=== PATIENT | male | born 1965 | race Caucasian/White ===

== ENCOUNTER 2022-08-21 13:04 | Emergency (ER) | payer OTHER, SELFPAY ==
[2022-08-21 13:16] VITALS: BP 152/125; PULSE 89; RESP 16; TEMP 36.6; O2SAT 99
--- NOTE | 2022-08-21 14:21 | ED.GENADULT ---
HPI - General Adult General Chief complaint: Abdominal Pain Stated complaint: Abdominal/ Back Pain Time Seen by Provider: 08/21/22 14:23 Source: patient, RN notes reviewed and old records reviewed Mode of arrival: ambulatory Limitations: no limitations History of Present Illness HPI narrative: 56 year old male presents to the [facility] with complaints of right lower quadrant pain radiating to the right flank. Symptoms since yesterday possibly Sunday. Has had nausea without vomiting. Patient states that he go cold his symptoms and thinks he might have appendicitis. Onset (ago): day(s) (1-2) Related Data Home Medications Medication Instructions Recorded Confirmed No Home Medications 08/21/22 08/21/22 Allergies Allergy/AdvReac Type Severity Reaction Status Date / Time No Known Allergies Allergy Unverified 08/21/22 13:08 Review of Systems Review of Systems: All systems reviewed & are unremarkable except as noted in HPI and below Constitutional: Constitutional: Reports no additional constitutional complaints Eyes: Eyes: Reports no additional eye complaints ENT: Reports system reviewed and no additional complaints, except as documented Cardiovascular: Cardiovascular: Reports no additional cardiovascular complaints, Denies chest pain and Denies dyspnea Respiratory: Respiratory: Reports no additional respiratory complaints, Denies chest congestion, Denies cough and Denies dyspnea Gastrointestinal: Gastrointestinal: Reports as per HPI, Reports abdominal pain (Right lower quadrant), Reports nausea and Denies vomiting Musculoskeletal: Musculoskeletal: Reports no additional musculoskeletal complaints Integumentary/Breasts: Skin/Breast: Reports system reviewed and no additional complaints, except as docu Neurologic: Reports system reviewed and no additional complaints, except as documented Psychiatric: Psychiatric: Reports no additional psychiatric complaints Allergic/Immunologic: Allergic/Immunologic: Reports no additional allergic/immunologic complaints PMFSH Comments At the time of my signature, I reviewed and agree with the nursing past medical, surgical, social, and family history. There is no relevant family history pertinent to the patient complaint. Exam Const: General: cooperative, healthy appearing, comfortable, no acute distress, well developed, alert and well nourished Nutritional Appearance: well nourished Orientation/consciousness: patient oriented x3 Limitations: no limitations HENMT: Head: normal to inspection Ears: hearing grossly normal bilaterally and external ears normal Face/Nose/Sinus: Normal external nose present, Normal nares present, Normal nasal mucous membranes and turbinates present and normal facial exam Face and sinus: normal facial exam Mouth: Yes Normal oral and palatal mucosa present, Yes lip normal and Yes moist mucous membranes Throat: posterior oropharynx normal and uvula midline Eyes: General: appearance normal, both eyes and all related structures Alignment and Position: alignment normal Periorbital: periorbital findings normal Conjunctivae: conjunctivae normal Pupils: Equal, round and reactive pupils present EOM: EOMs intact bilaterally Neck: Neck: normal visual inspection, full ROM, no lymphadenopathy and no meningeal signs Chest: Chest palpation & inspection: normal inspection of the chest Resp: Effort & Inspection: normal respiratory effort and able to speak in complete sentences Auscultation: clear to auscultation bilaterally, no crackles, no rales, no rhonchi and no wheezes Cardio: Rate: regular rate Rhythm: regular rhythm GI: Inspection: distended GI Palp: Yes Soft to palpation and Yes Tenderness to palpation present (GI) (Right lower quadrant) Auscultation: Hypoactive bowel sounds present Back/Spine/Pelvis: Back: CVA tenderness (Right lower) Cervical Spine: cervical ROM normal Thoracic/Lumbar Spine: No thoracic spinal tenderness Skin: General skin e
== END 2022-08-21 14:30 | disposition short-term general hospital (02) ==
PROVIDERS: Emergency Provider Nurse Practitioner; PCP Family Medicine
DX: R10.31 Right lower quadrant pain (principal); I10 Essential (primary) hypertension
CPT/HCPCS: 99212; G0463

== ENCOUNTER 2022-08-21 15:27 | Emergency (ER) | payer OTHER, SELFPAY ==
--- NOTE | ~2022-08-21 | CT_ITS ---
EXAMINATION: CT abdomen pelvis w con DATE: 08/21/2022 19:55 INDICATION: abd pain TECHNIQUE: Computed tomography (CT) of the abdomen and pelvis was performed with 100 mL Omnipaque-350 intravenous contrast. Automated exposure control and iterative reconstruction technique were employe d. The dose-length product was 636.57 mGy-cm. COMPARISON: None. FINDINGS: Lower thorax: Left lower lobe scar/atelectasis. Liver: Diffuse fatty infiltration. Biliary/Gallbladder: Gallbladder is normal. No bile duct dilation. Pancreas: No mass or duct dilation. Spleen: Normal. Adrenals:No mass. Kidneys: No mass, stone, or hydronephrosis. Mild inflammatory change at the mid right ureter likely r eactive to the inflammatory sigmoid process GI tract: Mild distal esophageal and gastric wall edema No small or large bowel dilation. Normal appe ndix. Short segment wall thickening and perisigmoid inflammatory change in the distal sigmoid in the midline pelvis, posterior to the urinary bladder. Background diverticulosis. Distended thickened urin pura bladder. Mild prostatomegaly. Mesentery/Peritoneum: No ascites, mass, or free air. Retroperitoneum: No mass. Pelvis: Pelvic organs are within normal limits. Soft Tissues: Soft tissues and body wall unremarkable. Bones: IMPRESSION: Esophagitis/gastritis. Hepatomegaly and steatosis. Acute uncomplicated sigmoid diverticulitis. Bladde r wall thickening likely secondary to outlet compromise noting that cystitis could appear similar. Reviewed, dictated and finalized at location K. 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 Hepatomegaly and steatosis. Acute uncomplicated sigmoid diverticulitis. Bladder wall thickening likely secondary to outlet compromise n oting that cystitis could appear similar.
[2022-08-21 15:36] VITALS: BP 139/91; PULSE 86; RESP 16; TEMP 36.2; O2SAT 97
[2022-08-21 16:49] LABS: Appearance Urine Clear (Clear); Bilirubin Urine Negative (Negative); Blood Urine 1+ (Negative); Color Urine Yellow (Yellow); Glucose Urine UA 3+ mg/dL (Negative); Ketones Urine Trace mg/dL (Negative); Leukocyte Esterase Ur Negative LEU/UL (Negative); Nitrate Urine Negative (Negative); Protein Urine Trace mg/dL (Negative); Urobilinogen Urine 0.2 mg/dL (<2.0)
[2022-08-21 16:50] LABS: Add Urine Microscopic? YES
[2022-08-21 16:58] LABS: RBC Urine 0-2 /hpf (0-2); Squamous Epithelial Cell Urine Rare /hpf (Few); WBC Urine 0-3 /hpf
[2022-08-21 17:01] LABS: Basophils Absolute Auto 0.1 K/mm3 (0.0-0.1); Basophils Percent Auto 0.5 % (0.2-1.2); Eosinophils Absolute Auto 0.1 K/mm3 (0-0.3); Eosinophils Percent Auto 0.5 % (0-4.4); Hematocrit 48.9 % (42.0-52.0); Hemoglobin 16.8 g/dL (14.0-18.0); Immature Granulocyte Absolute 0.04 K/mm3 (0.00-0.031); Immature Granulocyte Percent A 0.4 % (0-0.5); Lymphocytes Absolute Auto 1.74 K/mm3 (0.9-3.2); Lymphocytes Percent Auto 16.8 % (18.3-44.2); Mean Corpuscular HGB Conc 34.4 g/dl (32-36); Mean Corpuscular Hemoglobin 31.5 pg (26-34); Mean Corpuscular Volume 91.7 fl (80-100); Mean Platelet Volume 10.7 fl (7.4-10.4); Monocytes Absolute Auto 0.9 K/mm3 (0.1-0.6); Monocytes Percent Auto 9.1 % (2.6-8.5); Neutrophils Absolute Auto 7.6 K/mm3 (1.3-6.7); Neutrophils Percent Auto 72.7 % (45.5-73.1); Platelet Count Result 180 k/mm3 (150-375); Red Blood Count 5.33 M/mm3 (4.6-6.20); Red Cell Distribution Width 12.3 % (11.5-14.5); White Blood Count 10.4 K/mm3 (4.5-10.0)
[2022-08-21 17:02] LABS: Alanine Aminotransferase 31 U/L (6-50); Albumin Level 4.5 g/dL (3.5-5.1); Alkaline Phosphatase 141 U/L (38-126); Anion Gap 6 mmol/L (8-16); Aspartate Amino Transferase 19 U/L (17-59); Bilirubin,Total 1.4 mg/dL (0.2-1.3); Blood Urea Nitrogen 9 mg/dL (9-20); Calcium 8.8 mg/dL (8.4-10.2); Carbon Dioxide 32 mmol/L (22-30); Chloride 96 mmol/L (98-107); Estimated CRCL calculation 121 ml/min; Estimated Glomerular Filt Rate > 60; Glucose 284 mg/dL (65-110); Potassium 4.5 mmol/L (3.4-5.0); Sodium 134 mmol/L (137-145)
[2022-08-21 17:16] LABS: Lipase 96 U/L (23-300)
[2022-08-21 18:24] VITALS: BP 144/99; PULSE 95; RESP 18; O2SAT 98
--- NOTE | 2022-08-21 19:12 | ED.ABDPAIN ---
HPI - Abdominal Pain General Chief Complaint: Abdominal Pain Stated Complaint: right flank pain Time Seen by Provider: 08/21/22 19:03 Source: RN notes reviewed History of Present Illness HPI narrative: Patient presents emergency room from home for abdominal pain. Patient states symptoms began 2 days ago. Pain is located in right lower abdomen radiates around the right back:. Described as sharp and stabbing in nature. He states he has had some mild diarrhea with the symptoms he denies any fevers or chills chest pain shortness of breath nausea vomiting or any other symptoms. States he is not take anything for the pain Related Data Allergies Allergy/AdvReac Type Severity Reaction Status Date / Time No Known Allergies Allergy Verified 08/21/22 19:23 Review of Systems Review of Systems: Gen.: Denies fevers or chills ENT: Denies congestion Respiratory: Denies shortness of breath or cough CV: Denies chest pain or palpitations GI: See HPI denies burning, urgency, frequency or hematuria Musculoskeletal: Denies back pain or muscle pain Neuro: Denies numbness, tingling, weakness or focal weakness Skin: Denies rash Except as documented, all other systems reviewed and negative [facility] Past Medical History Medical History (Updated 08/21/22 @ 20:55 by Wale Darby DO) Patient denies significant medical history Exam Narrative: APPEARANCE: No acute distress, nontoxic, resting in bed HEENT: Normocephalic, atraumatic, OMM RESPIRATORY: No respiratory distress, clear to auscultation bilaterally with no rhonchi wheezing or rales CARDIOVASCULAR: RRR s murmur ABDOMINAL: Soft nondistended tender palpation in right lower quadrant and right upper quadrant no tenderness left upper quadrant left lower quadrant no rebound or guarding MUSCULOSKELETAl: Moves all extremities. No clubbing, cyanosis or edema. NEURO: Awake and alert. Following commands, speech normal, no focal deficits SKIN:: Warm, dry. Normal Color PSYCHIATRIC: Normal affect/mood Course Course Emergency Course: Patient states that they are feeling much better at this time. States abdominal pain has improved. Repeat abdominal exam shows the patient's abdomen to be soft nonsurgical and present. Discussed with patient diverticulitis he states he did recently have a colonoscopy. Discussed with patient results of workup and diagnosis. Discussed need for follow-up with primary care physician, reasons to return to the emergency department in proper use of medication. Patient understands and agrees to current treatment plan Vital Signs Vital signs: Vital Signs Temperature 97.2 F L 08/21/22 15:36 Pulse Rate 86 08/21/22 15:36 Respiratory Rate 16 08/21/22 15:36 Blood Pressure 139/91 H 08/21/22 15:36 Pulse Oximetry 97 08/21/22 15:36 Oxygen Delivery Room Air 08/21/22 15:36 Temperature 97.2 F L 08/21/22 15:36 Pulse Rate 95 08/21/22 18:24 Respiratory Rate 18 08/21/22 18:24 Blood Pressure 144/99 H 08/21/22 18:24 Pulse Oximetry 98 08/21/22 18:24 Oxygen Delivery Room Air 08/21/22 15:36 MDM - Abdominal Pain MDM Narrative Medical decision making narrative: Patient's abdomen is soft without significant pain or signs of surgical abdomen on serial exams. Lab and x-ray evaluations are reviewed and patient is felt to be a reasonable candidate for outpatient management. Patient was instructed as to limitations of x-ray and laboratory evaluation and encouraged to return to ED or primary physician for repeat exam in 12 hours if continued or worsening pain. Diverticulitis on CT scan we will start on Augmentin and follow-up as an outpatient Lab Data 08/21/22 16:33 08/21/22 16:33 Labs: Lab Results 08/21/22 08/21/22 08/21/22 Range/Units 16:33 16:33 16:33 WBC 10.4 H (4.5-10.0) K/mm3 RBC 5.33 (4.6-6.20) M/mm3 Hgb 16.8 (14.0-18.0) g/dL Hct 48.9 (42.0-52.0) % MCV 91.7 (80-100) fl MCH 31.5 (26
[2022-08-21] MEDS: SODIUM CHLORIDE 0.9% IV 1,000 ML 999 ML IV CONT (19:26)
[2022-08-21] MEDS: KETOROLAC 30 MG/ML VIAL (*BKC) IV PUSH (19:26)
[2022-08-21] MEDS: AMOXICILLIN/CLAVULANATE K 875-125 MG TAB 1 TABLET PO (21:09)
[2022-08-21 21:13] VITALS: BP 151/97; PULSE 64; RESP 18; O2SAT 98
== END 2022-08-21 21:18 | disposition home or self-care (01) ==
PROVIDERS: Emergency Medicine; Emergency Provider Emergency Medicine; PCP Family Medicine
DX: K57.32 Diverticulitis of large intestine without perforation or abscess without bleeding (principal)
CPT/HCPCS: 36415; 74177; 80053; 81001; 83690; 85025; 96361; 96374; 99284; A9270; J1885; J7030; Q9967

== ENCOUNTER → 2022-12-22 11:21 | Outpatient (CLI) | payer OTHER, SELFPAY ==
--- NOTE | ~2022-12-22 | US_ITS ---
EXAMINATION: US carotid duplex BI DATE: 12/22/2022 11:38 INDICATION: Left-sided disturbance of skin sensation with numbness and tingling TECHNIQUE: Grayscale, color Doppler, and pulsed Doppler images of the cervical carotid arteries were obtained. The degree of vessel stenosis is placed in one of the following categories: normal, <50%, 5 0-69%, >=70% but less than near-occlusion, near-occlusion, or total occlusion. Note that percent sten osis relative to normal distal artery lumen diameter is indirectly measured from velocity measurement s as described by Siddharth, et al. Radiology 2003; 229:340-346. COMPARISON: None. FINDINGS: RIGHT: The right common carotid artery (CCA) peak systolic velocity (PSV) is 64 cm/s. The right internal car otid artery (ICA) PSV is 59 cm/s. The right ICA end-diastolic velocity (EDV) is 18 cm/s. The right IC A/CCA PSV ratio is 1.5. Grayscale and color Doppler images yield an estimate of <50% diameter reducti on from plaque in the ICA. The external carotid artery (ECA) PSV is 106 cm/s. There is antegrade flow in the right vertebral artery. LEFT: The left CCA PSV is 70 cm/s. The left ICA PSV is 70 cm/s. The left ICA EDV is 30 cm/s. The left ICA/C CA PSV ratio is 1.3. Grayscale and color Doppler images yield an estimate of <50% diameter reduction from plaque in the ICA. The ECA PSV is 81 cm/s. There is antegrade flow in the left vertebral artery. IMPRESSION: 1. <50% stenosis in the right internal carotid artery. 2. <50% stenosis in the left internal carotid artery. Reviewed, dictated and finalized at location B.
== END ==
PROVIDERS: PCP Family Medicine; Visit Provider Physician Assistant
DX: I65.23 Occlusion and stenosis of bilateral carotid arteries (principal)
CPT/HCPCS: 93880

== ENCOUNTER 2024-12-21 19:06 | Emergency (ER) | payer OTHER, SELFPAY ==
--- NOTE | ~2024-12-21 | XR_ITS ---
EXAM: XR hand LT min 3V DATE: 12/21/2024 19:25 HISTORY: injury . COMPARISON: 01/15/2007. FINDINGS: Normal mineralization. No fracture or dislocation. No lytic or blastic lesion. Scattered d egenerative changes, moderate at the first CMC joint. No erosion or periosteal change. Stable punctat e radiopaque debris over the second proximal phalanx. IMPRESSION: No acute osseous finding in the left hand. Reviewed, dictated and finalized at location K.
--- NOTE | 2024-12-21 19:09 | ED.UPPEXIN ---
HPI - Extremity Injury (Upper) General Chief Complaint: Extremity Injury, Upper Stated Complaint: left hand injury Time Seen by Provider: 12/21/24 19:08 Source: patient Mode of arrival: ambulatory Limitations: no limitations History of Present Illness HPI narrative: Patient is a 59-year-old male who presents with left hand injury after falling off stool at 3:00 this afternoon. States he has fell on outstretched hand and now has sharp pain to the center of dorsal hand. Still able to move wrist and fingers normally. Denies any swelling or bruising. Has not taken anything for pain. Related Data Allergies Allergy/AdvReac Type Severity Reaction Status Date / Time No Known Allergies Allergy Verified 12/21/24 19:09 Review of Systems Review of Systems: All systems reviewed & are unremarkable except as noted in HPI and below Constitutional: Constitutional: Denies body ache(s), Denies chills, Denies fatigue, Denies fever(s), Denies headache(s), Denies malaise and Denies weakness Eyes: Eyes: Denies blurry vision, Denies irritation and Denies loss of vision ENT: Denies otalgia, Denies headache(s), Denies nasal discharge, Denies sinus pain and Denies sore throat Cardiovascular: Cardiovascular: Denies chest pain, Denies irregular heart rhythm and Denies dyspnea Respiratory: Respiratory: Denies dyspnea Gastrointestinal: Gastrointestinal: Denies abdominal pain, Denies melena, Denies hematochezia, Denies diarrhea, Denies nausea and Denies vomiting Musculoskeletal: Musculoskeletal: Denies back pain, Denies myalgias and Reports arthralgias Integumentary/Breasts: Skin/Breast: Denies pruritus and Denies rash Neurologic: Denies headache(s), Denies loss of vision and Denies weakness Psychiatric: Psychiatric: Reports no additional psychiatric complaints Endocrine: Endocrine: Denies fatigue PMFSH Past Medical History Medical History History of adenomatous and serrated colon polyps Type 2 diabetes mellitus with diabetic neuropathy, without long-term current use of insulin Pulmonary infarct DVT of lower extremity (deep venous thrombosis) LEFT LEG Pulmonary embolism Diverticulitis Benign essential hypertension Nicotine dependence, unspecified, uncomplicated Major depressive disorder, recurrent, moderate Surgical History Surgical History History of colonoscopy 2016 Family History Family History Mother Breast cancer Heart disease Hypertension Acute myocardial infarction Father Hypertension Heart disease Acute myocardial infarction Grandparent Heart disease Diabetes mellitus Acute myocardial infarction Social History Social History Smoking packs per day: 1 Smoking cigarettes per day: 20.0 Smoking status: Current every day smoker Tobacco type: cigarettes Second hand tobacco smoke exposure: No Alcohol intake: current Substance use: current Substance use type: marijuana Do You Feel Safe in your Home?: Yes Lack of Transportation: No Lack of Food: Never True Current Housing: I Have Housing Concerned About Future Housing: No Difficulty Paying Gas/Electric Bills: No Difficulty Paying for Meds: No Currently Unemployed: No Education: High School Diploma/GED Difficulty w/ Childcare or Family Care: No Living arrangements: with roommate(s) Occupation/Education: occupation Gender identity (if verbalized by the patient): Male Sexual Orientation (if Verbalized by the Patient): Straight or Heterosexual Spiritual care concerns: No Comments At time of signature, agree with nursing past medical, surgical, social and family history. There is no relevant family history pertinent to the presenting complaint. Exam Const: General: cooperative, healthy appearing, comfortable, no acute distress and well nourished Nutritional Appearance: well nourished Orientation/consciousness: patient oriented x3 Limitations: no limitations HENMT: Head: normal to inspection, normocephalic and atraumatic Ears: hearing grossly normal bilaterally and external ears normal Face/Nose/Sinus: Normal external nose present, normal facial exam and face symmetric Face and sinus: normal facial exam and face symmetric Mouth: Yes lip normal Eyes: General: appearance normal, both eyes and all related structures Alignment and Position: alignment normal and position normal Periorbital: periorbital findings normal Eyelids: eyelids normal Pupils: Equal, round and reactive pupils present EOM: EOMs intact bilaterally Neck: Neck: normal visual inspection, full ROM and supple Chest: Chest palpation & inspection: normal inspection of the chest Resp: Effort & Inspection: normal respiratory effort and able to speak in complete sentences Auscultation: clear to auscultation bilaterally Cardio: Rate: regular rate Rhythm: regular rhythm Heart sounds: S1 normal heart sound present and S2 normal heart sound present GI: Inspection: normal to inspection Skin: General skin exam: normal color and no rashes or lesions noted Neuro: General: patient oriented x3 and moves all extremities Cranial nerves: Yes Equal, round and reactive pupils present Speech: normal speech Gait exam (Neuro): Normal gait present Extrem: General: normal to inspection, full ROM and no edema Left upper extremity: elbow/forearm normal to inspection, normal ROM and distal pulses intact; no tenderness and no swelling, wrist normal to inspection, normal ROM, normal vascular exam and radial pulse present; no tenderness, no swelling and no unusual warmth and hand normal to inspection, normal capillary refill, neuromotor exam normal Details: wrist extension normal, thumb opposition normal, thumb IP flexion normal, thumb ADduction normal and fingers 2-5 ABduction normal, neurosensory exam normal Details: radial nerve sensory function normal, ulnar nerve sensory function normal, median nerve sensory function normal and digital nerve sensory function normal, tendon exam normal Location: of all digits Details: extensor tendon, flexor digitorum profundus and flexor digitorum superficialis, tenderness of the dorsal hand over the 3rd metacarpal, vascular exam radial pulse present and normal capillary refill, normal ROM of fingers and no swelling; no unusual warmth and no ecchymosis Psych: Appearance: grossly normal and well kempt Mental Status: mental status grossly normal Speech and movement: Normal speech and movement present Affect: normal affect Attitude: cooperative Thought process: Normal thought process present Course Course Emergency Course: Patient is aware of diagnosis, understands and agrees to treatment plan. Anticipatory guidance given. Patient agrees to follow-up as directed and is aware of reasons to seek care at the emergency department. Portions of this record may have been created with voice recognition software Level of Care: Express Care Visit Vital Signs Vital signs: Reviewed MDM - Extremity Injury (Upper) MDM Narrative Medical decision making narrative: An Delfino wrap applied hand Pt well hydrated appearing, in no respiratory distress, hemodynamically stable. Recommend supportive care. The patient is stable at time of discharge the clinical impression was discussed and the patient was given the opportunity to ask questions, which were addressed as completely as possible given the information available at present. Anticipatory guidance and return to care precautions were discussed and the importance of primary care follow-up was stressed and encouraged. The patient voiced understanding of the plan, indications to return, and the need for follow-up. Exam findings show no acute concerns or changes Patient is appropriate for outpatient treatment and follow-up. Differential Diagnosis Differential diagnosis: Likely sprain and strain of wrist, fracture of wrist, fracture of hand and other (Hand sprain, contusion) Medical Records Attestation: I reviewed the patient's medical records. Imaging Data Radiologist's impression: EXAM: XR hand LT min 3V DATE: 12/21/2024 19:25 HISTORY: injury . COMPARISON: 01/15/2007. FINDINGS: Normal mineralization. No fracture or dislocation. No lytic or blastic lesion. Scattered degenerative changes, moderate at the first CMC joint. No erosion or periosteal change. Stable punctate radiopaque debris over the second proximal phalanx. IMPRESSION: No acute osseous finding in the left hand Discharge Plan Discharge Clinical Impression: Hand sprain Qualifiers: Encounter type: initial encounter Laterality: left Qualified Code(s): S63.92XA - Sprain of unspecified part of left wrist and hand, initial encounter Patient Disposition: Home Condition: Stable Instructions: Hand Sprain (ED) Additional Instructions: Xray showed no fracture. Minimize activities that aggravate the condition The RICE protocol. Follow the RICE protocol as soon as possible after your injury:. Ice should be immediately applied to keep the swelling down. It can be used for 20 to 30 minutes, three or four times daily. Do not apply ice directly to your skin. Compression dressings, bandages or delfino-wraps will immobilize and support your injured hand. Elevate your hand above the level of your heart as often as possible during the first 48 hours. For pain, you may take: Tylenol 650-1000mg by mouth every 4-6 hours. Do not exceed 4000mg in 24 hours. Advil (Ibuprofen) 600 mg by mouth every 6 hours. Do not exceed 2400mg in 24 hours. 8 AM: Tylenol 11 AM: Ibuprofen 2 PM: Tylenol 5 PM: Ibuprofen 8 PM: Tylenol 11 PM: Ibuprofen 2 AM: Tylenol 5 AM: Ibuprofen Please schedule a follow-up visit with your personal physician for further evaluation and treatment within 1week OR If your symptoms persist, change or worsen significantly before you can contact your personal physician then please, without delay, go to the emergency department for further evaluation. Patient Language: Honduran Prescriptions: No Action metformin 500 mg tablet extended release 24 hr 500 mg PO DAILY 90 Days Qty: 90 1RF lisinopril-hydrochlorothiazide 20-12.5 mg tablet 1 tablet PO DAILY Qty: 90 1RF rosuvastatin 20 mg tablet 20 mg PO DAILY Qty: 90 1RF Follow-up/Referrals: Hollis Lyle MD [Primary Care Provider] - 3 Days Stand Alone Forms: Work/School Release IP Time of Disposition: 19:42
[2024-12-21 19:22] VITALS: BP 132/75; PULSE 75; RESP 16; TEMP 36.7; O2SAT 100
== END 2024-12-21 19:45 | disposition home or self-care (01) ==
PROVIDERS: Emergency Provider Nurse Practitioner Family; PCP Family Medicine
DX: S63.92XA Sprain of unspecified part of left wrist and hand, initial encounter (principal); W17.89XA Other fall from one level to another, initial encounter; E11.42 Type 2 diabetes mellitus with diabetic polyneuropathy; Z79.84 Long term (current) use of oral hypoglycemic drugs; I10 Essential (primary) hypertension; F12.90 Cannabis use, unspecified, uncomplicated; Z86.711 Personal history of pulmonary embolism; Z86.718 Personal history of other venous thrombosis and embolism; Z86.0101 Personal history of adenomatous and serrated colon polyps
CPT/HCPCS: 73130; 99213; G0463

== ENCOUNTER 2025-01-01 02:42 | Day surgery (SDC) | payer OTHER, SELFPAY ==
[2024-12-23 13:10] VITALS: BMI 27.6
--- OUTSIDE RECORDS SUMMARY | 2025-01-01 02:46 | XMS_ITS | Referral Summary ---
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 Gender Identity Not on file Sexual Orientation Not on file Last Filed Vital Signs Vital Sign Reading Time Taken Comments Blood Pressure 153/93 12/19/2022 6:59 AM CDT Pulse 58 12/19/2022 6:59 AM CDT Temperature 36.7 C (98 F) 12/18/2022 8:38 PM CDT Respiratory Rate 18 12/19/2022 6:59 AM CDT Oxygen Saturation 98% 12/19/2022 6:59 AM CDT Inhaled Oxygen Concentration - - Weight 94.3 kg (207 lb 14.3 oz) 12/18/2022 8:38 PM CDT Height 190.5 cm (6' 3 ) 12/18/2022 8:38 PM CDT Body Mass Index 25.98 12/18/2022 8:38 PM CDT Plan of Treatment Not on file Insurance [employer] OPEN ACCESS Care Teams Director Of Pulmonary Unit Relationship Specialty Start Date End Date Unknown, Notinfile PCP - General 12/18/22
--- OUTSIDE RECORDS SUMMARY | 2025-01-01 02:46 | XMS_ITS | Clinical Summary ---
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 11/21/2024 Active rosuvastatin (CRESTOR) 20 MG tablet Take 1 tablet (20 mg total) by mouth daily. 11/21/2024 Active metFORMIN ER, MOD, (GLUMETZA) 500 MG TABLET SR 24 HR 24 hr tablet Take 2 tablets (1,000 mg total) by mouth daily. Active vitamin C (ASCORBIC ACID) 1000 MG tablet Take 1 tablet (1,000 mg total) by mouth daily. Active zinc gluconate 50 MG Tab Take 1 tablet (50 mg total) by mouth daily. Active baclofen (LIORESAL) 10 MG tablet Take 1 tablet (10 mg total) by mouth 3 (three) times daily. 15 tablet 11/22/2024 Active lidocaine 4 % patch Place 1 patch onto the skin daily. Remove & Discard patch within 12 hours or as directed by 10 patch 11/22/2024 Active Active Problems Problem Noted Date Diagnosed Date Cellulitis of right upper extremity 06/06/2016 Encounters Date Type Department Care Team Description 11/22/2024 1:27 PM CDT - 11/22/2024 4:43 PM CDT Emergency [facility] [place] [address] Ariana Odell PA Back Pain (Right side back pain) Discharge Disposition: Home or Self Care (Routine Discharge) 11/22/2024 Travel from Last 3 Months Family History Medical History Relation Comments Breast Cancer Mother Relation Status Comments Mother Social History Tobacco Use Types Packs/Day Years Used Date Smoking Tobacco: Every Day Smokeless Tobacco: Never Alcohol Use Standard Drinks/Week Comments Yes 0 (1 standard drink = 0.6 oz pur e alcohol) Occasional use Sex and Gender Information Value Date Recorded Sex Assigned at Male 11/22/2024 2:07 PM CDT 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 Gender Identity Not on file Sexual Orientation Not on file Last Filed Vital Signs Vital Sign Reading Time Taken Comments Blood Pressure 101/77 11/22/2024 4:42 PM CDT Pulse 57 11/22/2024 4:42 PM CDT Temperature 36.4 C (97.5 F) 11/22/2024 1:18 PM CDT Respiratory Rate 20 11/22/2024 4:42 PM CDT Oxygen Saturation 98% 11/22/2024 4:42 PM CDT Inhaled Oxygen Concentration - - Weight 95.3 kg (210 lb) 11/22/2024 1:18 PM CDT Height 188 cm (6' 2 ) 11/22/2024 1:18 PM CDT Body Mass Index 26.96 11/22/2024 1:18 PM CDT Plan of Treatment Health Maintenance Due Date Last Done Comments Colorectal Cancer Screening Colonoscopy (10 Years) 1965 Annual Physical 1968 Hepatitis C 11/18/1983 Pneumococcal Vaccine: 50+ Ye ars (1 of 2 - PCV) 1984 Zoster Vaccines (1 of 2) 11/18/2015 DTaP, Tdap and Td Vaccines ( 2 - Td or Tdap) 10/17/2019 10/17/2009 COVID-19 Vaccine ( - 2023-2 5 season) 2024 Meningococcal B Vaccine Aged Out No l onger eligible based on patient's age to complete this topic Meningococcal Vaccine Aged Out No melody david eligible based on patient's age to complete this topic RSV Immunizations Under 20 Months Aged Out No longer eligible based on patient's age to complete this topic Procedures Procedure Name Priority Date/Time Associated Diagnosis Comments ECG 12-LEAD STAT 11/22/2024 3:[address] ABD+PEL W CON STAT 11/22/2024 2:54 PM CDT CTA CHEST PE PROTOCOL STAT 11/22/2024 2:54 PM CDT ECG 12-LEAD STAT 11/22/2024 1:48 PM CDT HC URINALYSIS AUTO W/O MICRO STAT 11/22/2024 1:41 PM CDT XR CHEST PA+LAT STAT 11/22/2024 1:37 PM CDT LIPASE STAT 11/22/2024 1:36 PM CDT TROPONIN, QUANT STAT 11/22/2024 1:36 PM CDT COMPREHENSIVE METABOLIC PANEL STAT 11/22/2024 1:36 PM CDT D-DIMER, QUANTITATIVE STAT 11/22/2024 1:36 PM CDT CBC W/DIFF AUTOMATED STAT 11/22/2024 1:36 PM CDT from Last 3 Months Results * ECG 12 lead (11/22/2024 3:38 PM CDT) Only the most recent of2 resultswithin the time period is included. 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 [address] Test Date: 2024-11-22 Pat Name: SHOLA OSMAN Department: 41 Room: [place] [address] Gender: Male Curriculum And Instruction Director: Estrellita : 1965 Requested By: ARIANA ODELL Order Number: [id number] Reading MD: Dayna Flood Measurements Intervals [place] Rate: 50 P: 50 CT: 162 QRS: 42 QRSD: 103 T: 68 QT: 449 QTc: 413 Interpretive Statements SINUS BRADYCARDIA WITH OCCASIONAL SUPRAVENTRICULAR PREMATURE COMPLEXES INTERPRETATION BASED ON A DEFAULT AGE OF 40 YEARS Compared to ECG 11/22/2024 13:48:47 Atrial flutter no longer present Intraventricular conduction delay no longer present us Ariana ESPINOSA ECG ORDERABLES Final Result [facility] RAD * CTA CHEST PE PROTOCOL (11/22/2024 2:54 PM CDT) Anatomical Region Laterality Modality Chest Computed Tomogra phy 11/22/2024 2:55 PM CDT Impressions 11/22/2024 3:18 PM CDT Impression: 1. There is a small predominantly eccentric filling defect in a posterior left lower lobe subsegmental pulmonary arteries as described. The finding is compatible with pulmonary embolism, possibly acute, although the eccentric location of the thrombus could be seen with a subacute and old PE. 2. Peribronchial thickening is noted of the lower lobe bronchi which could be seen with bronchitis. There are regions of mucus plugging in the lower lobes as well, right greater than left. 3. There are no acute findings noted in the abdomen and pelvis. The findings were discussed with the ordering clinician at the time of interpretation. Referred By: Interpreted By: Christopher Fiore MD, 11/22/2024 2:55 PM Narrative 11/22/2024 3:18 PM [address] [address] Examination: CTA CHEST PE PROTOCOL, CT ABD+PEL W CON Exam time: 11/22/2024 2:26 PM INDICATION: Right flank pain for one week.. History of pulmonary embolism. Comparison: CT abdomen and pelvis 09/09/2019 Technique: Thin section images were obtained of the chest with a CTA pulmonary embolism protocol and with IV contrast. 120 ml of Isovue 370. Coronal, sagittal and coronal 3D MIP reconstructions. Images were obtained through the abdomen and pelvis as well. A dose lowering technique was used for this procedure, which may include, but is not limited to, dose reduction technique, automated exposure control, the use of iterative reconstruction, and ALARA (As Low As Reasonably Achievable)/ Image gently techniques. Findings: CHEST: There is a small predominantly eccentric filling defect in a posterior left lower lobe subsegmental pulmonary artery, best seen on series 6 images 64 and 65 and series 4 image 75. There is mild dependent atelectasis. There is mild fibroatelectasis in the lower lobes. Peribronchial thickening is noted of the lower lobe bronchi which could be seen with bronchitis. There are regions of mucus plugging noted in the lower lobes as well, right greater than left. There is no lymphadenopathy. No pericardial effusion. Coronary artery calcifications are noted. No acute osseous abnormality. Abdomen/pelvis: The liver, gallbladder, spleen, pancreas, adrenal glands, and kidneys are unremarkable. There is no ureteral calculus. There is no calculus in the urinary bladder. There is diverticulosis of the sigmoid colon without evidence for diverticulitis. The appendix is normal. No bowel obstruction or free intraperitoneal air. There is atherosclerosis of the abdominal aorta without aneurysm. There is no lymphadenopathy. No acute osseous abnormality. Procedure Note Christopher Fiore MD - 11/22/[address] [address] Examination: CTA CHEST PE PROTOCOL, CT ABD+PEL W CON Exam time: 11/22/2024 2:26 PM INDICATION: Right flank pain for one week.. History of pulmonaryembolism. Comparison: CT abdomen and pelvis 09/09/2019 Technique: Thin section images were obtained of the chest with a CTApulmonary embolism protocol and with IV contrast. 120 ml of Isovue 370.Coronal, sagittal and coronal 3D MIP reconstructions. Images wereobtained through the abdomen and pelvis as well. A dose loweringtechnique was used for this procedure, which may include, but is notlimited to, dose reduction technique, automated exposure control, the useof iterative reconstruction, and ALARA (As Low As Reasonably Achievable)/Image gently techniques. Findings: CHEST: There is a small predominantly eccentric filling defect in aposterior left lower lobe subsegmental pulmonary artery, best seen onseries 6 images 64 and 65 and series 4 image 75. There is mild dependentatelectasis. There is mild fibroatelectasis in the lower lobes.Peribronchial thickening is noted of the lower lobe bronchi which could beseen with bronchitis. There are regions of mucus plugging noted in thelower lobes as well, right greater than left. There is nolymphadenopathy. No pericardial effusion. Coronary artery calcificationsare noted. No acute osseous abnormality. Abdomen/pelvis: The liver, gallbladder, spleen, pancreas, adrenal glands,and kidneys are unremarkable. There is no ureteral calculus. There is nocalculus in the urinary bladder. There is diverticulosis of the sigmoidcolon without evidence for diverticulitis. The appendix is normal. Nobowel obstruction or free intraperitoneal air. There is atherosclerosisof the abdominal aorta without aneurysm. There is no lymphadenopathy. Noacute osseous abnormality. Impression: 1. There is a small predominantly eccentric filling defect in a posteriorleft lower lobe subsegmental pulmonary arteries as described. The findingis compatible with pulmonary embolism, possibly acute, although theeccentric location of the thrombus could be seen with a subacute and oldPE. 2. Peribronchial thickening is noted of the lower lobe bronchi whichcould be seen with bronchitis. There are regions of mucus plugging in thelower lobes as well, right greater than left. 3. There are no acute findings noted in the abdomen and pelvis. The findings were discussed with the ordering clinician at the time ofinterpretation. Referred By: Interpreted By: Christopher Fiore MD, 11/22/2024 2:55 PM Ariana Leighann ESPINOSA CT Final Result * CT ABD+PEL W CON (11/22/2024 2:54 PM CDT) Anatomical Region Laterality Modality Abdomen Computed Tomogra phy 11/22/2024 2:59 PM CDT Impressions 11/22/2024 3:18 PM CDT Impression: 1. There is a small predominantly eccentric filling defect in a posterior left lower lobe subsegmental pulmonary arteries as described. The finding is compatible with pulmonary embolism, possibly acute, although the eccentric location of the thrombus could be seen with a subacute and old PE. 2. Peribronchial thickening is noted of the lower lobe bronchi which could be seen with bronchitis. There are regions of mucus plugging in the lower lobes as well, right greater than left. 3. There are no acute findings noted in the abdomen and pelvis. The findings were discussed with the ordering clinician at the time of interpretation. Referred By: Interpreted By: Christopher Fiore MD, 11/22/2024 2:55 PM Narrative 11/22/2024 3:18 PM CDT [facility] [address] [place], [place] [address] Examination: CTA CHEST PE PROTOCOL, CT ABD+PEL W CON Exam time: 11/22/2024 2:26 PM INDICATION: Right flank pain for one week.. History of pulmonary embolism. Comparison: CT abdomen and pelvis 09/09/2019 Technique: Thin section images were obtained of the chest with a CTA pulmonary embolism protocol and with IV contrast. 120 ml of Isovue 370. Coronal, sagittal and coronal 3D MIP reconstructions. Images were obtained through the abdomen and pelvis as well. A dose lowering technique was used for this procedure, which may include, but is not limited to, dose reduction technique, automated exposure control, the use of iterative reconstruction, and ALARA (As Low As Reasonably Achievable)/ Image gently techniques. Findings: CHEST: There is a small predominantly eccentric filling defect in a posterior left lower lobe subsegmental pulmonary artery, best seen on series 6 images 64 and 65 and series 4 image 75. There is mild dependent atelectasis. There is mild fibroatelectasis in the lower lobes. Peribronchial thickening is noted of the lower lobe bronchi which could be seen with bronchitis. There are regions of mucus plugging noted in the lower lobes as well, right greater than left. There is no lymphadenopathy. No pericardial effusion. Coronary artery calcifications are noted. No acute osseous abnormality. Abdomen/pelvis: The liver, gallbladder, spleen, pancreas, adrenal glands, and kidneys are unremarkable. There is no ureteral calculus. There is no calculus in the urinary bladder. There is diverticulosis of the sigmoid colon without evidence for diverticulitis. The appendix is normal. No bowel obstruction or free intraperitoneal air. There is atherosclerosis of the abdominal aorta without aneurysm. There is no lymphadenopathy. No acute osseous abnormality. Procedure Note Christopher Fiore MD - 11/22/[address] [address] Examination: CTA CHEST PE PROTOCOL, CT ABD+PEL W CON Exam time: 11/22/2024 2:26 PM INDICATION: Right flank pain for one week.. History of pulmonaryembolism. Comparison: CT abdomen and pelvis 09/09/2019 Technique: Thin section images were obtained of the chest with a CTApulmonary embolism protocol and with IV contrast. 120 ml of Isovue 370.Coronal, sagittal and coronal 3D MIP reconstructions. Images wereobtained through the abdomen and pelvis as well. A dose loweringtechnique was used for this procedure, which may include, but is notlimited to, dose reduction technique, automated exposure control, the useof iterative reconstruction, and ALARA (As Low As Reasonably Achievable)/Image gently techniques. Findings: CHEST: There is a small predominantly eccentric filling defect in aposterior left lower lobe subsegmental pulmonary artery, best seen onseries 6 images 64 and 65 and series 4 image 75. There is mild dependentatelectasis. There is mild fibroatelectasis in the lower lobes.Peribronchial thickening is noted of the lower lobe bronchi which could beseen with bronchitis. There are regions of mucus plugging noted in thelower lobes as well, right greater than left. There is nolymphadenopathy. No pericardial effusion. Coronary artery calcificationsare noted. No acute osseous abnormality. Abdomen/pelvis: The liver, gallbladder, spleen, pancreas, adrenal glands,and kidneys are unremarkable. There is no ureteral calculus. There is nocalculus in the urinary bladder. There is diverticulosis of the sigmoidcolon without evidence for diverticulitis. The appendix is normal. Nobowel obstruction or free intraperitoneal air. There is atherosclerosisof the abdominal aorta without aneurysm. There is no lymphadenopathy. Noacute osseous abnormality. Impression: 1. There is a small predominantly eccentric filling defect in a posteriorleft lower lobe subsegmental pulmonary arteries as described. The findingis compatible with pulmonary embolism, possibly acute, although theeccentric location of the thrombus could be seen with a subacute and oldPE. 2. Peribronchial thickening is noted of the lower lobe bronchi whichcould be seen with bronchitis. There are regions of mucus plugging in thelower lobes as well, right greater than left. 3. There are no acute findings noted in the abdomen and pelvis. The findings were discussed with the ordering clinician at the time ofinterpretation. Referred By: Interpreted By: Christopher Fiore MD, 11/22/2024 2:[address] Final Result * (ABNORMAL) URINALYSIS (11/22/2024 1:41 PM CDT) SPECIMEN TYPE URINE CLEAN CATCH 11/22/2024 1:42 PM CDT [facility] COLOR (U) LIGHT YELLOW 11/22/2024 1:54 PM CDT [facility] TRANSPARENCY CLEAR 11/22/2024 1:54 PM CDT [facility] SPECIFIC GRAVITY (U) 1.012 1.001 - 1.030 11/22/2024 1:54 PM CDT [facility] U PH 6.0 5.0 - 9.0 11/22/2024 1:54 PM CDT [facility] LEUKOCYTES (U) NEGATIVE NEGATIVE 11/22/2024 1:54 PM CDT [facility] NITRITES NEGATIVE NEGATIVE 11/22/2024 1:54 PM CDT [facility] PROTEIN RANDOM (U) NEGATIVE <30 MG/DL 11/22/2024 1:54 PM CDT [facility] GLUCOSE (U) NORMAL NORMAL MG/DL 11/22/2024 1:54 PM CDT [facility] KETONES MG/DL (U) NEGATIVE NEGATIVE MG/DL 11/22/2024 1:54 PM CDT [facility] UROBILINOGEN NORMAL NORMAL MG/DL 11/22/2024 1:54 PM CDT [facility] BILIRUBIN (U) NEGATIVE NEGATIVE MG/DL 11/22/2024 1:54 PM CDT [facility] BLOOD (U) NEGATIVE NEGATIVE 11/22/2024 1:54 PM CDT [facility] MUCUS RARE /LPF 11/22/2024 1:54 PM CDT [facility] WBC/HPF <1 <6 /HPF 11/22/2024 1:54 PM CDT [facility] RBC/HPF 2 <6 /HPF 11/22/2024 1:54 PM T [facility] BACTERIA (U) RARE(A) NONE /HPF 11/22/2024 1:54 PM T [facility] URINE SPECIMEN OBTAINED BY CLEAN CATCH PROCEDURE / Unknown 11/22/2024 1:41 PM CDT us Ariana Lawton Odell FRANCISCA URINE ORDERABLES Final Result [facility] [address] [place] [address], [place] [phone] * XR CHEST PA+LAT (11/22/2024 1:37 PM CDT) Anatomical Region Laterality Modality Chest Radiographic Kiki ging 11/22/2024 1:40 PM CDT Impressions 11/22/2024 1:42 PM CDT IMPRESSION: No evidence of acute cardiopulmonary disease. Referred By: Interpreted By: Kristen Winn MD, 11/22/2024 1:40 PM Narrative 11/22/2024 1:[address] [address] EXAMINATION: Chest x-ray 2 views. 11/22/2024 1:24 PM TECHNIQUE: PA and lateral upright images of the chest were obtained. HISTORY: Right upper back pain/right flank pain for one week. History of PE 15 years ago with similar pain sensation. COMPARISON: Chest x-ray 09/09/2019 FINDINGS: The cardiomediastinal silhouette is normal in size. The pulmonary vasculature is within normal limits. There is no consolidation, effusion, or pneumothorax. Mild elevation of the left hemidiaphragm, unchanged. Mild reticular opacity at the left lung base adjacent to this which may be secondary to atelectasis or scarring. This is similar to the prior exam. Thoracic spondylosis. Procedure Note Kristen Winn MD - 11/22/[address] [address] EXAMINATION: Chest x-ray 2 views. 11/22/2024 1:24 PM TECHNIQUE: PA and lateral upright images of the chest were obtained. HISTORY: Right upper back pain/right flank pain for one week. History ofPE 15 years ago with similar pain sensation. COMPARISON: Chest x-ray 09/09/2019 FINDINGS: The cardiomediastinal silhouette is normal in size. The pulmonaryvasculature is within normal limits. There is no consolidation, effusion,or pneumothorax. Mild elevation of the left hemidiaphragm, unchanged.Mild reticular opacity at the left lung base adjacent to this which may besecondary to atelectasis or scarring. This is similar to the prior exam.Thoracic spondylosis. IMPRESSION: No evidence of acute cardiopulmonary disease. Referred By: Interpreted By: Kristen Winn MD, 11/22/2024 1:40 PM [facility] Final Result * (ABNORMAL) COMPREHENSIVE METABOLIC PANEL (11/22/2024 1:36 PM CDT) GLUCOSE 128(H) 70 - 99 MG/DL 11/22/2024 2:14 PM CDT [facility] BUN 16 7 - 18 MG/DL 11/22/2024 2:14 PM CDT [facility] CREATININE S/P/B 0.81 0.7 - 1.3 MG/DL 11/22/2024 2:14 PM CDT [facility] SODIUM S/P/B 136 136 - 145 MMOL/L 11/22/2024 2:14 PM CDT [facility] POTASSIUM S/P/B 4.3 3.5 - 5.1 MMOL/L 11/22/2024 2:14 PM CDT [facility] CHLORIDE S/P/B 103 97 - 115 MMOL/L 11/22/2024 2:14 PM CDT [facility] CO2 29.3 21 - 32 MMOL/L 11/22/2024 2:14 PM CDT [facility] CALCIUM S/P/B 9.3 8.5 - 10.1 MG/DL 11/22/2024 2:14 PM T [facility] BILIRUBIN TOTAL S/P/B 0.4 0.2 - 1.2 MG/DL 11/22/2024 2:14 PM CDT [facility] Comment: THIS ASSAY IS NOT RECOMMENDED FOR PATIENTS UNDERGOING TREATMENT WITH ELTROMBOPAG DUE TO THE POTENTIAL FOR FALSELY ELEVATED RESULTS. TOTAL PROTEIN S/P/B 7.6 6.4 - 8.2 G/DL 11/22/2024 2:14 PM CDT [facility] ALBUMIN S/P/B 3.9 3.4 - 5.0 G/DL 11/22/2024 2:14 PM T [facility] AST 13(L) 15 - 37 U/L 11/22/2024 2:14 PM T [facility] ALT 27 16 - 60 U/L 11/22/2024 2:14 PM T [facility] ALKALINE PHOSPHATASE S/P/B 89 50 - 136 U/L 11/22/2024 2:14 PM T [facility] ANION GAP 3.7 2 - 10 MMOL/L 11/22/2024 2:14 PM T [facility] BUN CREATININE RATIO 19.7 6 - 26 11/22/2024 2:14 PM T [facility] A/G RATIO 1.1 1.0 - 2.0 RATIO 11/22/2024 2:14 PM T [facility] GFR ESTIMATE >90 >90 ML/MIN/1.7 3 M2 11/22/2024 2:14 PM T [facility] Comment: NOTE: eGFR is not calculated for patients <18 years of age or gender unknown. This is an estimated GFR calculation using the new CKD EPI creatinine equation without race and so does not require a correction factor for race. This estimated GFR should not be used for calculating drug doses. 11/22/2024 1:36 PM CDT [facility] Final Result Performing Organization Address [facility] Co de Phone Number [facility] [address] [place] [id number], * D-DIMER, QUANTITATIVE (11/22/2024 1:36 PM CDT) Pathologist [facility] D-DIMER 270 0 - 500 ng{FEU}/mL 11/22/2024 2:16 PM CDT [facility] Comment: D-Dimer values less than or equal to 500 ng/mL FEU have a negative predictive value of >95% for exclusion of deep vein thrombosis and pulmonary embolism. In patients over 50 (who tend to have higher normal baseline D-Dimer values), recent studies suggest age-adjusted D-Dimer cutoff values (calculated as: age [years] x 10 ng/mL) result in equivalent outcomes and no additional false negative findings. 11/22/2024 1:36 PM CDT [facility] Final Result Performing Organization Address [facility] Co de Phone Number [facility] [address] [place] [address], [place] [phone] * CBC W/DIFF AUTOMATED (11/22/2024 1:36 PM CDT) Pathologist [facility] WBC 7.18 4.5 - 11.0 x10'3/uL 11/22/2024 1:50 PM CDT [facility] RBC 4.93 4.70 - 6.10 x10'6/uL 11/22/2024 1:50 PM CDT [facility] HGB 15.1 14.0 - 18.0 G/DL 11/22/2024 1:50 PM CDT [facility] HCT 45.1 43.0 - 54.0 % 11/22/2024 1:50 PM CDT [facility] MCV 91.5 80.0 - 94.0 FL 11/22/2024 1:50 PM CDT [facility] MCH 30.6 27.0 - 31.0 PG 11/22/2024 1:50 PM CDT [facility] MCHC 33.5 32.0 - 36.0 G/DL 11/22/2024 1:50 PM CDT [facility] RDW 13.1 11.5 - 14.5 % 11/22/2024 1:50 PM CDT [facility] PLT 235 130 - 400 x10'3/uL 11/22/2024 1:50 PM CDT [facility] MPV 10.3 9.3 - 12.2 FL 11/22/2024 1:50 PM CDT [facility] DIFFERENTIAL TYPE AUTOMATED DIFFERENTIAL 11/22/2024 1:50 PM CDT [facility] NEUTROPHILS % 55.9 % 11/22/2024 1:50 PM CDT [facility] LYMPHOCYTES % 33.1 % 11/22/2024 1:50 PM CDT [facility] MONOCYTES % 7.9 % 11/22/2024 1:50 PM CDT [facility] EOSINOPHILS 2.2 % 11/22/2024 1:50 PM CDT [facility] BASOPHILS 0.8 % 11/22/2024 1:50 PM CDT [facility] IMMATURE GRANS % 0.1 % 11/23/19 1:50 PM CDT [facility] ABS. NEUTROPHILS 4.00 1.80 - 7.70 x10'3/uL 11/22/2024 1:50 PM CDT [facility] ABS. LYMPHOCYTES 2.38 1.00 - 4.80 x10'3/uL 11/22/2024 1:50 PM CDT [facility] ABS. MONOCYTES 0.57 0.30 - 0.82 x10'3/uL 11/22/2024 1:50 PM CDT [facility] ABS. EOSINOPHILS 0.16 0.04 - 0.54 x10'3/uL 11/22/2024 1:50 PM CDT [facility] ABS. BASOPHILS 0.06 0.01 - 0.08 x10'3/uL 11/22/2024 1:50 PM CDT [facility] ABS. IMMATURE GRANULOCYTES 0.01 0.00 - 0.49 x10'3/uL 11/22/2024 1:50 PM CDT [facility] 11/22/2024 1:36 PM CDT [facility] Final Result [facility] [address] [place] [address], * TROPONIN, QUANT (11/22/2024 1:36 PM CDT) TROPONIN I HIGH SENSITIVITY 6 <79 ng/L 11/22/2024 2:14 PM CDT [facility] Comment: HIGH DOSES OF BIOTIN, TROPONIN-SPECIFIC AUTOANTIBODIES, AND ANTIBODY THERAPY CONTAINING HAMA MAY INTERFERE WITH THIS TEST RESULT. CORRELATION TO CLINICAL HISTORY AND PRESENTATION RECOMMENDED. 11/22/2024 1:36 PM CDT us [facility] Final Result [facility] [address] [place] [address], [place] [phone] * LIPASE (11/22/2024 1:36 PM CDT) LIPASE 61 13 - 75 UNITS/L 11/22/2024 2:14 PM CDT [facility] 11/22/2024 1:36 PM CDT Ariana Odell PA [facility] Final Result Performing Organization Address City/[facility]/ZIP Co de Phone Number [facility] [address] [place] [id number], [place] [phone] from Last 3 [place] [address] [facility] Care Teams Size 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
--- OUTSIDE RECORDS SUMMARY | 2025-01-01 02:46 | XMS_ITS | Clinical Summary ---
Author Organization [facility] Address [address] [place] [address] Care Team Providers Care Heating Equipment Installer Name Role Phone Hollis Lyle MD Primary Care Provider [phone] Source Comments [facility],non-owned Affiliates and Associated Physician Practices is amultiple site organization consisting of ambulatory clinics and hospital sitesin [place], [place], [place] and [place]. This disclosure is being madepursuant to the Care Everywhere program and may not contain all information available regarding this patient. Last updated 18.[facility] Allergies No known active allergies Medications * Be aware that medications may not be up to date on this document. Alwaysverify current medications with the patient. citalopram (CELEXA) 10 MG tabletIndicatio ns:Depression Take 10 mg by mouth once daily Reasons: Depression Active Active Problems Problem Noted Date Diagnosed Date Cellulitis of right upper extremity 06/06/2016 Immunizations Immunization Administration Dates Next Due TDAP (7yrs+) 10/17/2009 Social History Tobacco Use Types Packs/Day Years Used Date Smoking Tobacco: Every Day Cigarettes Smokeless Tobacco: Never Tobacco Cessation:Ready to Q uit: No; Counseling Given: Yes Alcohol Use Standard Drinks/Week Comments Yes 6 (1 standard drink = 0.6 oz pur e alcohol) Sex and Gender Information Value Date Recorded Sex Assigned at Not on file Legal Sex Male 8:51 AM CDT Gender Identity Not on file Sexual Orientation Not on file Last Filed Vital Signs Vital Sign Reading Time Taken Comments Blood Pressure 140/84 06/06/2016 9:35 AM CDT Pulse 63 06/06/2016 9:35 AM CDT Temperature 36.8 C (98.3 F) 06/06/2016 9:35 AM CDT Respiratory Rate 14 06/06/2016 9:35 AM CDT Oxygen Saturation 94% 06/06/2016 9:35 AM CDT Inhaled Oxygen Concentration - - Weight 93.4 kg (206 lb) 06/06/2016 9:35 AM CDT Height 188 cm (6' 2 ) 06/06/2016 9:35 AM CDT Body Mass Index 26.45 06/06/2016 9:35 AM CDT Plan of Treatment Health Maintenance Due Date Last Done Comments COLOGUARD (AGES 45-75) - COL ON CA SCREENING 1965 COLON MONITORING 1965 COLONOSCOPY - COLON CA SCREENING 1965 CT COLONOGRAPHY - COLON CA SCREENING 1965 Colorectal Cancer Screening 1965 FIT - COLON CA SCREENING 1965 FLEX SIG - COLON CA SCREENING 1965 LIPID TESTING 1965 HIV SCREENING 1980 HEPATITIS C SCREENING 11/13/1983 HEPATITIS B VACCINE (1 of 3 - 19+ 3-dose series) 1984 PNEUMOCOCCAL VACCINE 50+ (1 of 2 - PCV) 1984 ZOSTER VACCINE (1 of 2) 11/18/2015 DTAP/TDAP/TD VACCINES (2 - T d or Tdap) 10/17/2019 10/17/2009 COVID-19 VACCINE ( - 2023-2 5 season) 2024 DEPRESSION SCREENING 08/20/2024 INFLUENZA VACCINE (Season Ended) 2025 HIB VACCINE Aged Out No longer eligi ble based on patient's age to complete this topic HPV VACCINE Aged Out No longer eligi ble based on patient's age to complete this topic MENINGOCOCCAL (Group B) VACC INE SHARED DECISION-MAKING Aged Out No longer eligibl e based on patient's age to complete this topic MENINGOCOCCAL GROUPS A/C/Y/W VACCINE Aged Out No longer eligible b ased on patient's age to complete this topic Goals Goal Patient Goal Type Associated Problems Recent Progress Patient-Stated? Author Quit smoking / using tobacco Lifestyle No Harmony Galloway MA Insurance [employer] Care Teams Heating Equipment Installer Relationship Specialty Start Date End Date Hollis Lyle MD PCP - General Family Medicine 06/06/16
--- OUTSIDE RECORDS SUMMARY | 2025-01-01 02:46 | XMS_ITS | Clinical Summary ---
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 Gender Identity Not on file Sexual Orientation [...] 12/18/2022 8:38 PM CDT Plan of Treatment Health Maintenance Due Date Last Done Comments Colon Cancer Screening-Colonoscopy 1965 Depression Screening 1965 Hepatitis C Screening 1965 Prostate Cancer Screening-PSA 1965 Hepatitis B Screening 11/18/1983 Regular Well Visit/Exam 18-64 11/18/1983 Zoster Vaccine (1 of 2) 11/18/2015 DTaP/Tdap/Td Vaccine (2 - Td or Tdap) 10/17/2019 10/17/2009 Influenza Vaccine (Season Ended) 2025 Pneumococcal vaccine <65 Aged Out No longer eligible based on patient's age to complete this topic Insurance [facility] [place] [phone] [facility] OPEN ACCESS [facility] [place] [phone] Care Teams Dyehouse Worker Relationship Specialty Start Date End Date Unknown, Notinfile PCP - General 12/18/22
[2025-01-01 10:53] VITALS: BP 95/66; PULSE 81; RESP 20; TEMP 36.1; O2SAT 99; BMI 25.4
[2025-01-01] MEDS: LACTATED RINGERS 1,000 ML 150 ML IV CONT (11:02)
--- NOTE | 2025-01-01 11:05 | WPDANESEPPF ---
Anes - Initial Pre Proc Eval Procedure: Operation Date: 01/01/25 12:30 Proposed Procedures p Colonoscopy - Ernesto Alcocer MD Date/Time: 01/01/25 11:05 Surgeon: Ernesto Alcocer MD Pre Op Diagnosis: hx of colon polyps Patient Data Age: 59 Gender: M Height: 1.88 m Weight: 90.1 kg Last Vital Signs Temp 36.1 C L 01/01/25 10:53 Pulse 81 01/01/25 10:53 Resp 20 01/01/25 10:53 BP 95/66 L 01/01/25 10:53 Pulse Ox 99 01/01/25 10:53 O2 Del Method Room Air 01/01/25 10:53 Allergies Allergy/AdvReac Type Severity Reaction Status Date / Time No Known Allergies Allergy Verified 01/01/25 10:52 Home Medications Medication Instructions Recorded Confirmed Type metformin 500 mg tablet,extended 500 mg PO DAILY diabetes 90 days 02/26/24 01/01/25 Rx release 24 hr #90 tabs lisinopril 20 1 tablet PO DAILY #90 tabs 09/02/24 01/01/25 Rx mg-hydrochlorothiazide 12.5 mg tablet rosuvastatin 20 mg tablet 20 mg PO DAILY #90 tabs 09/04/24 01/01/25 Rx Patient hx anesthesia problems: none Family hx anesthesia problems: none Results Review: All pre-operative results and documents have been reviewed as part of the pre-operative evaluation. [facility] Past Medical History Medical History History of adenomatous and serrated colon polyps Type 2 diabetes mellitus with diabetic neuropathy, without long-term current use of insulin Pulmonary infarct DVT of lower extremity (deep venous thrombosis) LEFT LEG Pulmonary embolism Diverticulitis Benign essential hypertension Nicotine dependence, unspecified, uncomplicated Major depressive disorder, recurrent, moderate Surgical History Surgical History History of colonoscopy 2016 Family History Family History Mother Breast cancer Heart disease Hypertension Acute myocardial infarction Father Hypertension Heart disease Acute myocardial infarction Grandparent Heart disease Diabetes mellitus Acute myocardial infarction Social History Social History Smoking packs per day: 1 Smoking cigarettes per day: 20.0 Smoking status: Current every day smoker Tobacco type: cigarettes Second hand tobacco smoke exposure: No Alcohol intake: current Substance use: current Substance use type: marijuana Do You Feel Safe in your Home?: Yes Lack of Transportation: No Lack of Food: Never True Current Housing: I Have Housing Concerned About Future Housing: No Difficulty Paying Gas/Electric Bills: No Difficulty Paying for Meds: No Currently Unemployed: No Education: High School Diploma/GED Difficulty w/ Childcare or Family Care: No Living arrangements: with roommate(s) Occupation/Education: occupation Gender identity (if verbalized by the patient): Male Sexual Orientation (if Verbalized by the Patient): Straight or Heterosexual Spiritual care concerns: No Anes - Eval Final PreProcedure Day of Procedure 01/01/25 11:05 Patient weight: overweight Heart: regular rate and rhythm Lungs: clear to auscultation Airway: Mallampati scale class II Neurological: alert and oriented Last oral intake: >/= 8 hours ASA classification: III Emergent: no Anesthetic plan: proceed Anesthesia type and monitoring: general GIVS and standard monitoring Results Review: All pre-operative results and documents have been reviewed as part of the pre-operative evaluation. Informed Consent: The patient's anesthetic plan and its attendant risks and benefits were discussed with the patient/family/POA. Questions were solicited and answers provided to the satisfaction of the patient/family/POA.
[2025-01-01 11:08] VITALS: BP 112/71
[2025-01-01 11:10] LABS: Glucose Point of Care 98 mg/dl (65-105)
--- NOTE | 2025-01-01 11:31 | PM.IMHP ---
H&P: HPI History of Present Illness Date/Time: 01/01/25 11:31 Chief Complaint: Screening colonoscopy Narrative: This is the patient's 3rd colonoscopy. There are no GI symptoms and there is no family history of colorectal cancer. Review of Systems Review of Systems: All systems reviewed & are unremarkable except as noted in HPI and below PMFSH Past Medical History Medical History History of adenomatous and serrated colon polyps Type 2 diabetes mellitus with diabetic neuropathy, without long-term current use of insulin Pulmonary infarct DVT of lower extremity (deep venous thrombosis) LEFT LEG Pulmonary embolism Diverticulitis Benign essential hypertension Nicotine dependence, unspecified, uncomplicated Major depressive disorder, recurrent, moderate Surgical History Surgical History History of colonoscopy 2015 Family History Family History Mother Breast cancer Heart disease Hypertension Acute myocardial infarction Father Hypertension Heart disease Acute myocardial infarction Grandparent Heart disease Diabetes mellitus Acute myocardial infarction Social History Social History Smoking packs per day: 1 Smoking cigarettes per day: 20.0 Smoking status: Current every day smoker Tobacco type: cigarettes Second hand tobacco smoke exposure: No Alcohol intake: current Substance use: current Substance use type: marijuana Do You Feel Safe in your Home?: Yes Lack of Transportation: No Lack of Food: Never True Current Housing: I Have Housing Concerned About Future Housing: No Difficulty Paying Gas/Electric Bills: No Difficulty Paying for Meds: No Currently Unemployed: No Education: High School Diploma/GED Difficulty w/ Childcare or Family Care: No Living arrangements: with roommate(s) Occupation/Education: occupation Gender identity (if verbalized by the patient): Male Sexual Orientation (if Verbalized by the Patient): Straight or Heterosexual Spiritual care concerns: No Meds Home Medications and Allergies Home Medications Medication Instructions Recorded Confirmed Type metformin 500 mg tablet,extended 500 mg PO DAILY diabetes 90 days 02/26/24 01/01/25 Rx release 24 hr #90 tabs lisinopril 20 1 tablet PO DAILY #90 tabs 09/02/24 01/01/25 Rx mg-hydrochlorothiazide 12.5 mg tablet rosuvastatin 20 mg tablet 20 mg PO DAILY #90 tabs 09/04/24 01/01/25 Rx Allergies Allergy/AdvReac Type Severity Reaction Status Date / Time No Known Allergies Allergy Verified 01/01/25 10:52 Vital Signs Vital Signs - 24 hr 01/01/25 10:53 01/01/25 11:08 Temperature 96.9 F L Pulse Rate 81 Respiratory Rate 20 Blood Pressure 95/66 L 112/71 Pulse Oximetry 99 Oxygen Delivery Room Air Exam Const: General: cooperative and healthy appearing Resp: Effort & Inspection: normal respiratory effort and able to speak in complete sentences Auscultation: clear to auscultation bilaterally Cardio: Rate: regular rate Rhythm: regular rhythm GI: Inspection: normal to inspection GI Palp: No No hepatosplenomegaly present Auscultation: normal bowel sounds Rectal Exam: deferred Skin: General skin exam: normal color Psych: Appearance: grossly normal Mental Status: mental status grossly normal Assessment and Plan Assessment and plan (1) History of adenomatous and serrated colon polyps: Code(s): Z86.0101 - Personal history of adenomatous and serrated colon polyps Status: Acute Assessment and Plan: The patient is deemed a good candidate for the procedure. Consent signed. Will proceed.
[2025-01-01] MEDS: SIMETHICONE ORAL SUSPENSION 20 MG/0.3 ML 30 ML BOTTLE 0.6 ML IRRIGATION (11:50)
[2025-01-01 12:03] VITALS: BP 95/52; PULSE 58; RESP 18; O2SAT 98
[2025-01-01 12:13] VITALS: BP 101/63; PULSE 58; RESP 18; O2SAT 98
[2025-01-01 12:23] VITALS: BP 92/62; PULSE 66; RESP 18; O2SAT 100
== END 2025-01-01 12:33 | disposition home or self-care (01) ==
PROVIDERS: PCP Family Medicine; Referring Provider Family Medicine; Visit Provider Internal Medicine Gastroenterology
PROC: 0DJD8ZZ Inspection of Lower Intestinal Tract, Via Natural or Artificial Opening Endoscopic (ICD-10-PCS; CPT 45378; principal; 2025-01-01 12:30)
DX: Z12.11 Encounter for screening for malignant neoplasm of colon (principal); D12.5 Benign neoplasm of sigmoid colon; D12.8 Benign neoplasm of rectum; K64.8 Other hemorrhoids; K57.30 Diverticulosis of large intestine without perforation or abscess without bleeding; I10 Essential (primary) hypertension; E11.40 Type 2 diabetes mellitus with diabetic neuropathy, unspecified; F33.8 Other recurrent depressive disorders; I25.2 Old myocardial infarction; F17.210 Nicotine dependence, cigarettes, uncomplicated; F12.90 Cannabis use, unspecified, uncomplicated; Z79.84 Long term (current) use of oral hypoglycemic drugs; Z86.711 Personal history of pulmonary embolism; Z87.19 Personal history of other diseases of the digestive system; Z86.718 Personal history of other venous thrombosis and embolism; Z80.3 Family history of malignant neoplasm of breast; Z82.49 Family history of ischemic heart disease and other diseases of the circulatory system
CPT/HCPCS: 45385; 82948; 88305; J2003; J2704; J7120

== ENCOUNTER 2025-05-07 12:08 | Outpatient (CLI) | payer OTHER, SELFPAY ==
--- NOTE | ~2025-05-07 | XR_ITS ---
XR lumbar spine 2-3V Indication: M54.16 - Radiculopathy, lumbar region Comparison: None Findings: Grade 1 anterolisthesis of L4 on L5. No fracture is identified. Moderate loss of disc at L5-S1. Soft tissues unremarkable Impression: No acute abnormality. Reviewed, dictated and finalized at location A. Impression: No acute abnormality.
== END 2025-05-07 12:09 | disposition home or self-care (01) ==
LOC: MICIMG 12:09
PROVIDERS: PCP Family Medicine
DX: M54.16 Radiculopathy, lumbar region (principal)
CPT/HCPCS: 72100